=== PATIENT | female | born 1965 | race Caucasian/White ===

== ENCOUNTER 2018-10-29 09:05 | Outpatient (CLI) | payer BC ==
--- NOTE | 2018-10-29 12:27 | BD ---
BONE DENSITOMETRY USING DEXA: Date: 10/29/18 HISTORY: Postmenopausal screening for osteoporosis. FINDINGS: Lumbar Spine: BMD (g/cm2) L1 0.723 T-Score: -2.4 Z-Score: -1.7 L2 0.787 T-Score: -2.2 Z-Score: -1.4 L3 0.826 T-Score: -2.3 Z-Score: -1.5 L4 0.829 T-Score: -2.1 Z-Score: -1.3 L1-L4 0.796 T-Score: -2.3 Z-Score: -1.5 Femoral Neck: 0.661 T-Score: -1.7 Z-Score: -0.9 Total Femur: 0.817 T-Score: -1.0 Z-Score: -0.5 IMPRESSION: Osteopenia. POS: [facility]
== END 2018-10-29 09:06 | disposition home or self-care (01) ==
LOC: BICMAMMO 09:05
PROVIDERS: ATTEND Obstetrics & Gynecology
DX: Z12.31 Encounter for screening mammogram for malignant neoplasm of breast (principal); Z13.820 Encounter for screening for osteoporosis; M85.89 Other specified disorders of bone density and structure, multiple sites; R92.1 Mammographic calcification found on diagnostic imaging of breast; Z80.3 Family history of malignant neoplasm of breast
CPT/HCPCS: 77063; 77067; 77080

== ENCOUNTER 2019-11-26 10:06 | Outpatient (CLI) | payer BC ==
--- NOTE | 2019-11-26 11:11 | BD ---
EXAM: DEXA bone density examination HISTORY: 54-year-old female for osteoporosis screening COMPARISON: October 29, 2018 DEXA evaluation FINDINGS: L1--bone mineral density 0.756 g/sq cm; T score -2.1. Z score -1.4 L2--bone mineral density 0.822 g/sq cm; T score -1.9; Z score -1.0 L3--bone mineral density 0.889 g/sq cm; T score -1.8; Z score -0.9 L4--bone mineral density 0.877 g/sq cm; T score -1.7, Z score -0.7 Total L1-L4--bone mineral density 0.838 g/sq cm; T score -1.9, Z score -1.0 Left femoral neck--bone mineral density0.645; T score -1.8, Z score -1.0 Total proximal left femur--bone mineral density 0.896; T score -0.4, Z score 0.2 IMPRESSION: Based on the WHO criteria, the patient's bone mineral density is consideredosteopenic. Th e patient is at moderate risk for fracture. The bone mineral density of the L1-L4 region has slightly improved 5.3% from the baseline examination dated October 29, 2018. However, this is not st atistically significant due to slightly different analysis methods provided on this exam when compared to prior (region of interest margins are slightly different). No appreciable change is seen within the bone mineral density of the left femoral neck region when compared to the prior exam. The bone mineral density is likely stable to the prior exam. Continued follow-up is recommended.
--- NOTE | 2019-11-26 11:19 | MMO ---
Bilateral MAMMO Bilat Screen [facility]. CLINICAL HISTORY: Patient is 54 years old and is seen for screening. The patient has no family history of breast cancer. The patient has no personal history of cancer. The patient has a history of bilateral Implants - 10 YEARS AGO. VIEWS: The views performed were: bilateral craniocaudal; bilateral craniocaudal with tomosynthesis; bilateral mediolateral oblique; bilateral mediolateral oblique with tomosynthesis; and bilateral Implant displaced with tomosynthesis. FILMS COMPARED: The present examination has been compared to prior imaging studies performed at [facility] on 02/01/2005, 08/11/2015, 06/14/2017 and 10/29/2018. This study has been interpreted with the assistance of computer-aided detection. MAMMOGRAM FINDINGS: There are scattered fibroglandular densities. Normal implants are present. There are no suspicious masses, suspicious calcifications, or new areas of architectural distortion. IMPRESSION: THERE IS NO MAMMOGRAPHIC EVIDENCE OF MALIGNANCY. A ROUTINE FOLLOW-UP MAMMOGRAM IN 1 YEAR IS RECOMMENDED. THE RESULTS OF THIS EXAM WERE SENT TO THE PATIENT. ACR BI-RADS Category 2 - Benign finding MAMMOGRAPHY NOTE: 1. A negative mammogram report should not delay a biopsy if a dominant of clinically suspicious mass is present. 2. Approximately 10% to 15% of breast cancers are not detected by mammography. 3. Adenosis and dense breasts may obscure an underlying neoplasm. Reported by: AMADA GIBSON MD Electonically Signed: [id number]
== END 2019-11-26 10:07 | disposition home or self-care (01) ==
LOC: BICMAMMO 10:06
PROVIDERS: ATTEND Obstetrics & Gynecology
DX: Z12.31 Encounter for screening mammogram for malignant neoplasm of breast (principal); Z13.820 Encounter for screening for osteoporosis; Z98.82 Breast implant status; M85.89 Other specified disorders of bone density and structure, multiple sites
CPT/HCPCS: 77063; 77067; 77080

== ENCOUNTER 2020-12-03 08:33 | Outpatient (CLI) | payer BC | END 2020-12-03 08:34 | disposition home or self-care (01) | LOC: BICMAMMO 08:33 | PROVIDERS: ATTEND Obstetrics & Gynecology | DX: Z12.31 Encounter for screening mammogram for malignant neoplasm of breast (principal); Z13.820 Encounter for screening for osteoporosis; M85.89 Other specified disorders of bone density and structure, multiple sites; Z98.82 Breast implant status | CPT/HCPCS: 77063; 77067; 77080 ==

== ENCOUNTER 2022-07-15 08:56 | Outpatient (CLI) | payer OTHER | END 2022-07-15 08:57 | disposition home or self-care (01) | LOC: BICMAMMO 08:56 | PROVIDERS: ATTEND Obstetrics & Gynecology | DX: Z12.31 Encounter for screening mammogram for malignant neoplasm of breast (principal); Z98.82 Breast implant status | CPT/HCPCS: 77063; 77067 ==